=== PATIENT | female | born 1985 | race African-American/Black ===

== ENCOUNTER 2017-11-21 08:42 | Emergency (ER) | payer MEDICAID, SELFPAY ==
[2017-11-21] MEDS ORDERED: Acetaminophen 500 MG TAB ONE (09:02)
[2017-11-21] MEDS ORDERED: Ondansetron ODT 4 MG TAB ONE (09:02)
[2017-11-21] MEDS ORDERED: Ibuprofen 800 MG TAB ONE (09:02)
== END 2017-11-21 09:17 | disposition home or self-care (01) ==
LOC: ERS 08:42
DX: J11.1 Influenza due to unidentified influenza virus with other respiratory manifestations (principal); B34.9 Viral infection, unspecified; I10 Essential (primary) hypertension
CPT/HCPCS: 99283; Q0162

== ENCOUNTER 2018-03-17 13:33 | Emergency (ER) | payer MEDICAID, OTHER ==
[2018-03-17 14:24] LABS: #Eosinphils 0.1 thou/uL (0.0-0.7); #Lymphocytes 1.7 thou/uL (1.20-3.40); #Monocytes 0.4 thou/uL (0.11-0.59); #Neutrophils 9.8 thou/uL (1.40-6.50); %Basophils 0.1 % (0.0-1.0); %Eosinophils 0.8 % (0.0-10.0); %Lymphocytes 13.7 % (21.0-51.0); %Monocytes 3.6 % (0.0-10.0); %Neutrophils 81.7 % (42.0-75.0); Hemoglobin 12.1 g/dL (12.0-16.0); Mean Corpuscular HGB CONC 34.5 g/dL (32.0-36.0); Mean Corpuscular Hemoglobin 32.3 pg (27.0-31.0); Mean Corpuscular Volume 93.7 fl (81.0-99.0); Mean Platelet Volume 6.8 fL (7.4-10.4); Platelet Count 315 thou/uL (130-400); RBC Distribution Width 11.1 % (11.5-14.5); Red Blood Cell (RBC) Count 3.75 mill/uL (4.20-5.40)
[2018-03-17 14:46] LABS: ALT (SGPT) 11 U/L (8-55); AST (SGOT) 10 U/L (5-34); Albumin 4.2 g/dL (3.5-5.0); Alkaline Phosphatase 45 U/L (40-150); Anion Gap 11 mmol/L (10-20); BUN (Urea Nitrogen) 7 mg/dL (7.0-18.7); Bilirubin, Total 0.6 mg/dL (0.2-1.2); Calc. Creatinine Clearance 0 mL/min (70-130); Calcium 9.4 mg/dL (7.8-10.44); Carbon Dioxide 22 mmol/L (22-29); Chloride 104 mmol/L (98-107); Estimated GFR-MDRD Greater than 90; Globulin 3.2 g/dL (2.4-3.5); Glucose 114 mg/dL (70-105); Lipase 23 U/L (8-78); Potassium 3.7 mmol/L (3.5-5.1); Protein, Total 7.4 g/dL (6.0-8.3); Sodium 133 mmol/L (136-145)
--- NOTE | 2018-03-17 15:59 | ULT ---
PELVIC ULTRASOUND: 03/17/18 HISTORY: Pelvic pain. Bleeding. COMPARISON: None. TECHNIQUE: Transabdominal imaging of the pelvis is performed. Ovaries are interrogated with reyes scale, color fl ow, doppler imaging with spectral waveform analysis. FINDINGS: A uterus is identified. There appears to be a single intrauterine gestation. Parkin-rump length is 4.7 4 cm, corresponding to a gestational age of 11 weeks, 4 days. There are heart tones. No defini te subchorionic hemorrhage. Yolk sac is not appreciated. Right ovary measures 3.7 x 2.1 x 2.4 cm. Left ovary measures 4.1 x 2.3 x 1.8 cm. No free fluid. OVARIAN DOPPLER: Vascular flow to both ovaries. IMPRESSION: Single intrauterine gestation with heart tones. Gestational age by crown-rump length is 11 week s, 4 days. POS: [facility]
[2018-03-17 16:48] LABS: Bilirubin Negative (Negative); Blood, Urine Trace (Negative); Clarity CLEAR (Clear); Glucose, Urine (Dipstick) Negative (Negative); Leukocyte Negative (Negative); Nitrite Negative (Negative); Protein, Urine (Dipstick) Trace mg/dL (Neg-Trace); pH, Urine 6.5 (5.0-9.0)
[2018-03-17 16:50] LABS: Bacteria/HPF None Seen HPF (None Seen); Hyaline Casts/LPF 0-3 HYALINE CAST LPF (0-3 Hyaline); Pathc Cast-AUWi Flag 0.58 (0-2.49); Squamous Epithelial 0-3 HPF (0-3); WBC/HPF 0-3 HPF (0-3)
[2018-03-20 19:57] LABS: Chlamydia by PCR Not Detected (NotDetected); GC by PCR Not Detected (NotDetected)
== END 2018-03-17 17:10 | disposition home or self-care (01) ==
LOC: ERS 13:33
DX: O20.0 Threatened abortion (principal); O10.911 Unspecified pre-existing hypertension complicating pregnancy, first trimester; O99.341 Other mental disorders complicating pregnancy, first trimester; F31.9 Bipolar disorder, unspecified; Z3A.12 12 weeks gestation of pregnancy
CPT/HCPCS: 36415; 76856; 80053; 81003; 81015; 83690; 84702; 85025; 87480; 87491; 87510; 87591; 87660; 93976

== ENCOUNTER 2018-09-09 10:40 | Day surgery (SDC) | payer OTHER ==
[2018-09-09 11:18] VITALS: BP 129/74; TEMP 98
[2018-09-09 11:19] VITALS: BMI 27.2
--- NOTE | 2018-09-09 11:33 | PDOC.FPROB ---
FMR OB H&P: HPI - History of Present Illness Chief Complaint: pressure History of Present Illness: Patient presents with CC of continued vaginal pressure. Increasing pressure since this am. No pain, no contractions. Wondering if she is in labor. Sexually active last night. Feeling baby move. Denies headache, vision changes, vaginal bleeding, discharge or LOF. Last seen in clinic a few weeks ago for acute visit and treated with flagyll for BV. Has not followed up, GBS not taken. 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 denies: vision changes, scotomas Cardiovascular: denies: palpitation, edema Respiratory: denies: cough, shortness of breath Gastrointestinal: denies: abdominal pain, cramping, nausea, vomiting Genitourinary (Female): reports: vaginal pressure. denies: dysuria, vaginal discharge, vaginal pain, vaginal bleeding, contractions Musculoskeletal: denies: pain, tenderness Neurologic: denies: weakness, headache Integumentary: denies: rash, lesions Psychological: denies: depression, anxiety FMR OB H&P: Vital Signs - Maternal Vital signs: Vital Signs - First Documented Temp Pulse Resp BP 98 F 91 16 129/74 09/09/18 11:16 09/09/18 11:16 09/09/18 11:16 09/09/18 11:16 - Heart Tones Baseline: 150 Variability: moderate Acceleration: present Deceleration: absent Category: category 1 [place] contractions every: no contractions FMR OB H&P: Physical Exam - Physical Exam General: NAD HEENT: normocephalic and atraumatic Heart: RRR, normal S1/S2, no edema General: CTAB, no respiratory distress, good air movement Abdomen: soft, gravid, non-tender, bowel sound present Skin: good tugor, capillary refill <2 seconds Lymphatic: no unusual bruising or bleeding FMR OB H&P: A/P - Problem List (1) Supervision of normal intrauterine in multigravida Status: Acute Code(s): Z34.80 - ENCOUNTER FOR SUPRVSN OF NORMAL , UNSP TRIMESTER Discussion: Date/Time: 09/09/18 1131 32 yo @ 37.3 wks by 9 wk sono presents with vaginal pressure. IUP - strip reactive, no contractions, no LOF - /-1 @ 11:14 - ordered GBS swab - Patient not in labor at this time - after GBS collected will d/c with follow up in clinic next week This H&P was discussed with Dr. Seymour and Dr. Johnston who agree with the above documentation and plan. Attending Addendum - Attending Addendum Date/Time: 09/09/18 1712 I personally evaluated the patient and discussed the management with Dr. Hassan I agree with the History, Examination, Assessment and Plan documented above with any addition or exceptions noted below- 32 yo @ 37.3 weeks presented c /o pelvic pressure. Denies any ctx, LOF, VB. (+)FM. Afebrile VSS. Category 1 FHTs. [place] no ctx. SVE 50/-1. A/P: 1) Pelvic pressure- no evidence of labor. Most likely infant position causing symptom. D/c home with labor precautions and follow-up in clinic next week. GBS swab collected.
== END 2018-09-09 12:14 | disposition home or self-care (01) ==
LOC: L&D/OP 10:40
PROVIDERS: ATTEND Family Medicine
DX: O99.89 Other specified diseases and conditions complicating pregnancy, childbirth and the puerperium (principal); R10.2 Pelvic and perineal pain; Z3A.37 37 weeks gestation of pregnancy
CPT/HCPCS: 87077; 87081; 99283

== ENCOUNTER 2018-09-23 09:28 | Inpatient (IN) | payer OTHER ==
[2018-09-23 10:18] VITALS: BMI 27.3
[2018-09-23 10:31] LABS: Amnisure Internal Control QC ACCEPTABLE (ACCEPTABLE); Amnisure Test No Membranes Rupture (No Rupture)
[2018-09-23 11:13] LABS: Amnisure Test No Membranes Rupture (No Rupture)
[2018-09-23 11:14] LABS: Amnisure Internal Control QC ACCEPTABLE (ACCEPTABLE)
--- NOTE | 2018-09-23 11:17 | PDOC.LDHP ---
Labor and Delivery H&P Chief complaint: loss of fluid HPI: 32 yo @39.3wks by 9wk US presents with LOF. She denies contractions, vaginal bleeding, vaginal discharge. Endorses movement. NICK: 09/27/18 Due date: 09/27/18 Dating criteria: first trimester ultrasound Grav: 5 Para: 4 ([id number]) OB History Details: Ob Hx: 4 prior NSVDs, no complications Current complications: other (Chlamydia with DIMA) Abnormal US findings: No Past Medical History: None Current medications: pre-ashley vitamins Previous surgical history: none Social history: none - Physical Exam Vital signs reviewed and normal: yes General: NAD Heart: RRR Lungs: CTAB Abdomen: gravid Extremeties: no edema [place] contractions every: not lillian - Vaginal Exam cm dilated: 3 Effacement: 50% Station: -3 - OB Labs Antibody Screen: negative HIV: negative RPR: negative HEPSAg: negative 1 hour GCT: negative GBS: positive Rubella: immune - Assessment Prelabor Rupture of Membranes sIUP Hx of Chlamydia, s/p DIMA Herpes? No active lesions GBS positive - Plan Plan: admit to L&D, labor augmentation if indicated, GBS antibiotic prophylaxis , informed consent obtained, anesthesia consult for pain management <Tessa Beltrán - Last Filed: 09/23/18 11:24> <Paolo Alonso - Last Filed: 09/23/18 14:20> Allergies/Adverse Reactions: Allergies Allergy/AdvReac Type Severity Reaction Status Date / Time No Known Drug Allergies Allergy Verified 09/23/18 10:18 Attending Addendum - Attending Addendum Date/Time: 09/23/18 1707 I personally evaluated the patient and discussed the management with Dr. Corcoran I agree with the History, Examination, Assessment and Plan documented above with any addition or exceptions noted below. Here with suspected ROM, during course of eval had gross ROM despite negative Amnisure testing. 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 <Paolo Alonso - Last Filed: 09/23/18 14:20>
[2018-09-23] MEDS ORDERED: Penicillin G Potassium 5 MILL.UNITS VIAL ONE (12:09)
[2018-09-23] MEDS ORDERED: Butorphanol Tartrate 1 MG/ML VIAL SLOW IVP PRN (12:10)
[2018-09-23] MEDS ORDERED: Misoprostol 200 MCG TAB PR PRN (12:10)
[2018-09-23] MEDS ORDERED: Acetaminophen 500 MG TAB PO PRN (12:10)
[2018-09-23] MEDS ORDERED: NS w/ Oxytocin 10 units 500 ML IV SCH ×2 (12:10)
[2018-09-23] MEDS ORDERED: NS / Oxytocin 40 units/1000ml 1,000 ML IV PRN (12:10)
[2018-09-23] MEDS ORDERED: NS w/ Oxytocin 10 units 500 ML ONE (12:10)
[2018-09-23] MEDS ORDERED: Promethazine HCl 25 MG/ML VIAL IM PRN ×2 (12:10→17:18)
[2018-09-23] MEDS ORDERED: Lidocaine 1% (PF) 30 ML VIAL SC PRN (12:10)
[2018-09-23] MEDS ORDERED: Ondansetron PF 4 MG/2 ML Vial IVP PRN ×3 (12:10→20:21)
[2018-09-23] MEDS: Lactated Ringer's 1,000 ML IV SCH ×2 (12:20→17:11)
[2018-09-23] MEDS ORDERED: Penicillin G Potassium 5 MILL.UNITS in Sodium Chloride 0.9% 100 ML IVPB SCH (12:30)
[2018-09-23 12:33] LABS: Hemoglobin 12.8 g/dL (12.0-16.0); Mean Corpuscular Hemoglobin 32.4 pg (27.0-31.0); Mean Corpuscular Volume 98.3 fL (78.0-98.0); Mean Platelet Volume 7.8 fL (7.4-10.4); Platelet Count 256 thou/uL (130-400); RBC Distribution Width 11.7 % (11.5-14.5); Red Blood Cell (RBC) Count 3.96 mill/uL (4.20-5.40); White Blood Cell (WBC) Count 13.9 thou/uL (4.8-10.8)
[2018-09-23 13:20] LABS: Syphilis Antibody Nonreactive (Nonreactive); Syphilis Antibody Index 0.03 S/CO (<1.00 Non-Reactive)
[2018-09-23 13:21] LABS: HBSAg Index 0.19 S/CO (0-0.99); HIV 1/2 INDEX 0.15 S/CO (<1.00); Hep B Surf Ag Non-Reactive S/CO (NonReactive)
[2018-09-23 13:33] LABS: HIV (1/2) Antibody/Antigen NonReactive (NonReactive)
--- NOTE | 2018-09-23 14:23 | PDOC.EVN ---
Event Note - Event Note Event Note: Doing well, EFM reassuring, occasional variables. Cervix /-2 on my exam Has received 1 dose PCN, second dose due at 16:30 Unsure epidural - offered. Dr. Ling notified.
--- NOTE | 2018-09-23 16:22 | PDOC.OBLPN ---
FMR OB Labor PN: Subj - Interval History Hospital Day: 1 FMR OB Labor PN: Obj - Maternal Vital signs: BP: [] HR: [] RR: [] Tmax: [] Pox: []% on [] Wt: [] FMR OB Labor PN: Exam - Pelvic Exam SVE: 5 / 100% / 0 Membranes: PROM Estimated Weight: 7 lbs FMR OB Labor PN: Data - Labs Lab results: Laboratory Results - last 24 hr 09/23/18 09/23/18 09/23/18 10:10 10:45 12:21 WBC RBC Hgb Hct MCV MCH MCHC RDW Plt Count MPV Amnio Swab Test No Membranes Rupture No Membranes Rupture Syphilis IgG/IgM Ab Hep Bs Antigen Non-Reactive HIV 1&2 Antigen & Ab NonReactive Blood Type Antibody Screen 09/23/18 09/23/18 09/23/18 12:21 12:21 12:21 WBC 13.9 H RBC 3.96 L Hgb 12.8 Hct 39.0 MCV 98.3 H MCH 32.4 H MCHC 33.0 RDW 11.7 Plt Count 256 MPV 7.8 Amnio Swab Test Syphilis IgG/IgM Ab Nonreactive Hep Bs Antigen HIV 1&2 Antigen & Ab Blood Type B POSITIVE Antibody Screen NEGATIVE FMR OB Labor PN: A/P - Problem List (1) PROM (premature rupture of membranes) Current Visit: Yes Status: Acute Code(s): O42.90 - JORGE ROM, 7TH0 BETW RUPT & ONST LABR, UNSP WEEKS OF GEST Assessment and Plan: On pitocin progressing. Had intermittent cat 2, pit turned off ----> restarted. (2) Group B streptococcal infection during Current Visit: Yes Status: Acute Code(s): O98.819 - OTH MATERNAL INFEC/ PARASTC DISEASES COMP PREG, UNSP TRI; B95.1 - STREPTOCOCCUS, GROUP B, CAUSING DISEASES CLASSD ELSWHR Assessment and Plan: On PCN per protocol - will receive second dose shortly (3) Supervision of normal intrauterine in multigravida Current Visit: No Status: Acute Code(s): Z34.80 - ENCOUNTER FOR SUPRVSN OF NORMAL , UNSP TRIMESTER Discussion: Date/Time: 09/23/18 1620 This H&P was discussed with [] and [] who agree with the above documentation and plan.
[2018-09-23] MEDS ORDERED: Fentanyl 4 mcg/Bup 0.1% Cadd 100 ML ONE (16:43)
[2018-09-23] MEDS ORDERED: Penicillin G 2.5 MILL.units 2.5 MILL.UNITS in Premix Bag 1 BAG IVPB SCH (17:00)
[2018-09-23] MEDS ORDERED: Naloxone HCl 0.4 mg/ml Vial IVP PRN ×2 (17:18)
[2018-09-23] MEDS ORDERED: Lactated Ringer's 500 ML IV PRN (17:18)
[2018-09-23] MEDS ORDERED: Acetaminophen 325 MG TAB PO PRN (17:18)
[2018-09-23] MEDS ORDERED: diphenhydrAMINE 50 MG/ML VIAL IVP PRN (17:18)
[2018-09-23] MEDS ORDERED: ePHEDrine/0.9% NaCl/PF SYRINGE 50 mg/10 ml SLOW IVP PRN (17:18)
[2018-09-23] MEDS ORDERED: Eucerin (Mineral Oil/Petrolatum,White) 30 gm Jar TOP PRN (17:18)
[2018-09-23] MEDS ORDERED: Fentanyl 4 mcg/Bupivacaine 0.1% Cassette 100 ML EPIDURAL SCH (17:30)
[2018-09-23] MEDS ORDERED: Communication Order-Pharmacy FS SCH (17:30)
--- NOTE | 2018-09-23 17:31 | PDOC.EVN ---
Event Note - Event Note Event Note: Cervix unchanged Complete effacement with inelastic cervical OS is explained by history of LEEP If she fails to dilate further despite adequate contractions would have low threshold to section to avoid uterine rupture. Discussed with the residents and Dr. De La Fuente, who is assuming attending duties.
[2018-09-23] MEDS ORDERED: Lidocaine 1% (PF) 30 ML VIAL ONE (17:38)
[2018-09-23] MEDS ORDERED: NS / Oxytocin 40 units/1000ml 1,000 ML ONE (17:38)
[2018-09-23] MEDS ORDERED: Bupivacaine/Epinephrine 0.25% 30 ML VIAL ONE (20:00)
[2018-09-23] MEDS ORDERED: Preparation H Ointment 28 GM TUBE PR PRN (20:21)
[2018-09-23] MEDS ORDERED: Lanolin Ointment 7 GM TUBE TOP PRN (20:21)
[2018-09-23] MEDS ORDERED: NS / Oxytocin 40 units/1000ml 1,000 ML IV SCH (20:21)
[2018-09-23] MEDS ORDERED: Adacel (T-DAP) 0.5 ML VIAL IM ONE (20:21)
[2018-09-23] MEDS ORDERED: Bisacodyl 10 MG SUPP PR PRN (20:21)
[2018-09-23] MEDS ORDERED: Milk Of Magnesia 30 ML UDCUP PO PRN (20:21)
[2018-09-23] MEDS: Docusate Calcium (SURFAK) 240 MG CAP PO SCH (21:16)
[2018-09-23] MEDS: Ibuprofen 800 MG TAB PO SCH (21:17)
[2018-09-24] MEDS: Ibuprofen 800 MG TAB PO SCH ×3 (06:31→21:51)
--- NOTE | 2018-09-24 06:33 | PDOC.PP ---
Post Progress Note Post Day #: 1 Subjective: Malena Paris is a 32 year old F who delivered a TAGA female at 1820 on 09/23/18 via uncomplicated . She is GBS +, adequately treated X2 doses. She is doing well this morning, tolerating PO, she has been up once to urine. Her pain is well controlled. Vaginal bleeding about equivalent to a period. No complaints. She plans to breast and bottle feed. PO intake tolerated: yes Flatus: yes Ambulation: yes Vital Signs (12 hours) Temp Pulse Resp BP Pulse Ox 09/24/18 04:00 98.5 F 82 18 124/72 09/24/18 00:10 97.5 F L 83 20 121/70 09/23/18 22:40 98.1 F 77 18 121/60 09/23/18 21:40 98.1 F 80 18 128/75 09/23/18 20:35 97.8 F 78 18 141/82 H 99 Weight Weight 81.647 kg - Physical Examination General: NAD Cardiovascular: no m/r/g, RRR Respiratory: clear to auscultation bilaterally, non-labored breathing Abdominal: + bowel sounds, lochia (lochia rubra), no distention, appropriately TTP Neurological: no gross focal deficits Psychiatric: A&Ox3, normal affect Result Diagrams: 09/23/18 12:21 Additional Labs: Post Labs Blood Type B POSITIVE 09/23/18 12:21 Hep Bs Antigen Non-Reactive S/CO (NonReactive) 09/23/18 12:21 (1) Spontaneous vaginal delivery Code(s): O80 - ENCOUNTER FOR FULL-TERM UNCOMPLICATED DELIVERY Status: Acute (2) Group B streptococcal infection during Code(s): O98.819 - OTH MATERNAL INFEC/PARASTC DISEASES COMP PREG, UNSP TRI; B95.1 - STREPTOCOCCUS, GROUP B, CAUSING DISEASES CLASSD ELSWHR Status: Acute - Assessment/Plan (1) Term IUP s/p - continue routine post care - pain management, pain well controlled with ibuprofen - plans to breast and formula feed (2) GBS + during - adequately treated X2 doses - monitor for increased pain, fever, vaginal discharge - monitor for fever in baby (3) - recommended feeding baby breast first Q2-3h 10-15 min each side - will consider library sales consultant consult <Chip Ling - Last Filed: 09/24/18 06:31> Vital Signs (12 hours) Temp Pulse Resp BP Pulse Ox 09/25/18 07:58 98.3 F 78 14 143/83 H 100 Weight Weight 81.647 kg Result Diagrams: 09/23/18 12:21 Additional Labs: Post Labs Blood Type B POSITIVE 09/23/18 12:21 Hep Bs Antigen Non-Reactive S/CO (NonReactive) 09/23/18 12:21 <Gwendolyn De La Fuente - Last Filed: 09/25/18 10:07> Attending Addendum - Attending Addendum Date/Time: 09/25/18 1006 I personally evaluated the patient and discussed the management with Dr. Marr I agree with the History, Examination, Assessment and Plan documented above with any addition or exceptions noted below. Stable PPD #1 Meeting appropriate milestones Anticipate d/c to home tomorrow <Gwendolyn De La Fuente - Last Filed: 09/25/18 10:07>
[2018-09-24] MEDS: Prenatal Vitamin 1 TAB PO SCH (08:43)
[2018-09-24] MEDS: Docusate Calcium (SURFAK) 240 MG CAP PO SCH ×2 (08:43→21:51)
[2018-09-24] MEDS: Ferrous Sulfate 325 MG TAB PO SCH ×2 (08:43→15:37)
--- NOTE | 2018-09-25 05:45 | PDOC.PP ---
Post Progress Note Post Day #: 2 Subjective: Malena Paris is doing well this morning, she has no complaints. Pain is well controlled with ibuprofen. She is ready to go home today. PO intake tolerated: yes Flatus: yes Ambulation: yes Vital Signs (12 hours) Temp Pulse Resp BP Pulse Ox 09/24/18 20:25 98.5 F 86 18 129/74 98 Weight Weight 81.647 kg - Physical Examination General: NAD Cardiovascular: no m/r/g, RRR Respiratory: clear to auscultation bilaterally, non-labored breathing Abdominal: lochia (lochia rubra), no distention, appropriately TTP Neurological: no gross focal deficits Psychiatric: A&Ox3, normal affect Result Diagrams: 09/23/18 12:21 Additional Labs: Post Labs Blood Type B POSITIVE 09/23/18 12:21 Hep Bs Antigen Non-Reactive S/CO (NonReactive) 09/23/18 12:21 (1) Spontaneous vaginal delivery Code(s): O80 - ENCOUNTER FOR FULL-TERM UNCOMPLICATED DELIVERY Status: Acute (2) Group B streptococcal infection during Code(s): O98.819 - OTH MATERNAL INFEC/PARASTC DISEASES COMP PREG, UNSP TRI; B95.1 - STREPTOCOCCUS, GROUP B, CAUSING DISEASES CLASSD ELSWHR Status: Acute - Assessment/Plan (1) Term IUP s/p - continue routine post care - pain management, pain well controlled with ibuprofen - plans to breast and formula feed - d/c home today with 2 wk f/u at [facility] with Dr. Ling (2) GBS + during - adequately treated X2 doses - monitor for increased pain, fever, vaginal discharge - monitor for fever in baby (3) - recommended feeding baby breast first Q2-3h 10-15 min each side - declined offer for automotive internet sales consultant <Chip Ling - Last Filed: 09/25/18 11:45> Weight Weight 81.647 kg Result Diagrams: 09/23/18 12:21 Additional Labs: Post Labs Blood Type B POSITIVE 09/23/18 12:21 Hep Bs Antigen Non-Reactive S/CO (NonReactive) 09/23/18 12:21 <Gwendolyn De La Fuente - Last Filed: 09/26/18 13:25> Attending Addendum - Attending Addendum Date/Time: 09/26/18 6206 I personally evaluated the patient and discussed the management with Dr. Ling I agree with the History, Examination, Assessment and Plan documented above with any addition or exceptions noted below. Stable PPD #2. Meeting appropriate milestones. Stable for d/c to home today. <Gwendolyn De La Fuente - Last Filed: 09/26/18 13:25>
[2018-09-25] MEDS: Ibuprofen 800 MG TAB PO SCH (06:27)
[2018-09-25] MEDS: Ferrous Sulfate 325 MG TAB PO SCH (08:18)
[2018-09-25] MEDS: Docusate Calcium (SURFAK) 240 MG CAP PO SCH (09:01)
[2018-09-25] MEDS: Prenatal Vitamin 1 TAB PO SCH (09:01)
[2018-09-25 09:58] VITALS: BP 143/83; TEMP 98.3
--- NOTE | 2018-09-25 14:23 | DN-2 ---
DELIVERING PHYSICIAN: Chip Ling MD/Michelle Juan DO ATTENDING PHYSICIAN: Dr. Gwendolyn De La Fuente. PROCEDURE: Spontaneous vaginal delivery. ANESTHESIA: Epidural. ESTIMATED BLOOD LOSS: 252 mL. PREOPERATIVE DIAGNOSES: 1. Term intrauterine in labor. 2. History of chlamydia [id number] negative. 3. History of HSV -- no active infections. POSTOPERATIVE DIAGNOSES: 1. Term intrauterine , delivered. 2. History of chlamydia infection status post of [id number] negative. 3. History of HSV. No active lesions. INDICATIONS: A 32-year-old female presents in active labor. DELIVERY NOTE: This is a 32-year-old female now at 39 and 3 weeks who delivered a viable female infant at 1820 on 09/23/2018 via uncomplicated normal spontaneous vaginal delivery following an uneventful antepartum course, a vigorous female was delivered over an intact perineum in the occipitoanterior position. Anterior shoulder and the remainder of the body were delivered. No nuchal cord. The head was held down and mouth and nares was bulb suctioned. Cord clamped and cut and cord blood collected. Placenta delivered intact with 3 -vessel cord noted. Fundal massage was performed and the uterus was firm. The cervix and vagina were inspected and found to be free of lacerations. went to nursery in good condition for routine care. Apgars were 9 and 9 at 1 and 5 minutes, respectively. The patient tolerated delivery well and went to after routine recovery/care. Attending Addendum: I was present for the entire and uncomplicated performed by Dr. Ling. I agree with the above documentation. Gwendolyn De La Fuente DO MTDD
== END 2018-09-25 13:00 | disposition home or self-care (01) | DRG 807 ==
LOC: L&D/OP 09:28 → L&D 14:20 → 3SW 20:35
PROC: 10E0XZZ Delivery of Products of Conception, External Approach (ICD-10-PCS; principal; 2018-09-23)
PROC: 3E02340 Introduction of Influenza Vaccine into Muscle, Percutaneous Approach (ICD-10-PCS; 2018-09-23)
DX: O99.824 Streptococcus B carrier state complicating childbirth (principal); Z37.0 Single live birth; Z3A.39 39 weeks gestation of pregnancy; Z23 Encounter for immunization
CPT/HCPCS: 36415; 51702; 76815; 84112; 85027; 86780; 86850; 86900; 86901; 87340; 87389; 90715; 99285; J0595; J2001; J2540

== ENCOUNTER 2021-07-27 09:45 | Emergency (ER) | payer OTHER | END 2021-07-27 11:32 | disposition home or self-care (01) | LOC: ERS 09:45 | DX: R07.81 Pleurodynia (principal); I10 Essential (primary) hypertension ==

== ENCOUNTER 2025-08-11 16:14 | Emergency (ER) | payer OTHER ==
[2025-08-11] MEDS ORDERED: Ketorolac Tromethamine 30 MG (1 mL) VIAL ONE (17:00)
[2025-08-11] MEDS ORDERED: Dexamethasone 10 MG/ML VIAL ONE (18:55)
== END 2025-08-11 19:00 | disposition home or self-care (01) ==
LOC: ERS 16:14
DX: B34.9 Viral infection, unspecified (principal)
CPT/HCPCS: 71045; 87081; 87428; 87430; 96372; J1100; J1885